=== PATIENT | female | born 1955 | race Caucasian/White ===

== ENCOUNTER → 2017-11-18 | Outpatient (CLI) | payer OTHER | END | disposition home or self-care (01) | LOC: HKI 14:35 | DX: M16.12 Unilateral primary osteoarthritis, left hip (principal); I10 Essential (primary) hypertension | CPT/HCPCS: 73502 ==

== ENCOUNTER → 2017-12-09 | Outpatient (CLI) | payer OTHER | END | disposition home or self-care (01) | LOC: HKI 13:44 | DX: M25.461 Effusion, right knee (principal) | CPT/HCPCS: G0463 ==

== ENCOUNTER → 2017-12-14 | Outpatient (CLI) | payer OTHER | END | disposition home or self-care (01) | LOC: HKI 13:48 | DX: T84.030A Mechanical loosening of internal right hip prosthetic joint, initial encounter (principal); Z96.641 Presence of right artificial hip joint | CPT/HCPCS: 73502 ==

== ENCOUNTER 2017-12-28 06:18 | Inpatient (IN) | payer OTHER ==
[2017-12-28] MEDS ORDERED: TRANEXAMIC ACID IRR (07:00)
[2017-12-28] MEDS ORDERED: SOD CHLORIDE 0.9% IRR (07:00)
[2017-12-28] MEDS ORDERED: LIDOCAINE 2% (SDV) 5 ML INJ (07:00)
[2017-12-28] MEDS ORDERED: PROPOFOL 200 MG INJ (07:00)
[2017-12-28] MEDS ORDERED: DEXAMETHASONE 4 MG/ML 1 ML INJ ×2 (07:00→10:13)
[2017-12-28] MEDS ORDERED: TRANEXAMIC ACID IVPB (07:00)
[2017-12-28] MEDS ORDERED: SOD CHLORIDE 0.9% IVPB (07:00)
[2017-12-28] MEDS ORDERED: EPHEDrine SULFATE 50 MG/5 ML SYG (07:00)
[2017-12-28] MEDS: ACETAMINOPHEN 1000MG/100ML IV 100 ML IVPB ×2 (07:52→18:24)
[2017-12-28] MEDS: LACTATED RINGER'S 1,000 ML IV* (07:52)
[2017-12-28] MEDS: ONDANSETRON 4 MG INJ IV (07:52)
[2017-12-28] MEDS: GABAPENTIN 300 MG CAP PO ×2 (07:56→21:02)
[2017-12-28] MEDS: CELECOXIB 200 MG CAP PO (07:56)
[2017-12-28] MEDS: LANSOPRAZOLE 30 MG CAP PO (07:57)
[2017-12-28] MEDS: VANCOMYCIN 1 GM (PMX) 250 ML IVPB ×2 (07:58→20:56)
[2017-12-28] MEDS ORDERED: BUPIVACAINE 0.75%/DEXT (SPINAL) 2 ML INJ (09:09)
[2017-12-28] MEDS ORDERED: FENTAnyl 50 MCG/ML VIAL (09:09)
[2017-12-28] MEDS ORDERED: MIDAZOLAM 1 MG/ML 2 ML INJ (09:46)
[2017-12-28 11:46] LABS: SYN FLD MN % 67.3 &; SYN FLD PMN % 32.7 % (0.0-25.0); SYN FLD WBC 1728 /cmm (0-150)
[2017-12-28] MEDS: ROPIVACAINE 0.2% 60 ML, CLONIDINE 100 MCG, EPINEPHrine 0.3 MG, KETOROLAC 30 MG, SOD CHL... INJ (12:12)
[2017-12-28 12:26] LABS: SYN FLD CLARITY CLOUDY; SYN FLD CRYSTALS NO CRYSTALS SEEN (None seen)
[2017-12-28 12:26] LABS: SYN FLD SOURCE HIP FLUID
[2017-12-28 12:35] LABS: SYN FLD COLOR ORANGE
[2017-12-28] MEDS ORDERED: ROCURONIUM 50 MG INJ (13:40)
[2017-12-28] MEDS ORDERED: HYDROmorphONE 2 MG/ML SYG (13:41)
[2017-12-28] MEDS ORDERED: PHENYLephrine (100 MCG/ML) 5ML SYG (13:53)
[2017-12-28] MEDS ORDERED: CEFAZOLIN 1 GM INJ ×3 (14:53)
[2017-12-28] MEDS ORDERED: SUGAMMADEX SODIUM 200 MG/2 ML VIAL IV (14:56)
[2017-12-28] MEDS ORDERED: ONDANSETRON 4 MG INJ (14:56)
[2017-12-28] MEDS: TOBRAMYCIN 1.2 GM POWDER (14:58)
[2017-12-28] MEDS: VANCOMYCIN 1 GM INJ (14:59)
[2017-12-28] MEDS ORDERED: HYDROmorphONE (0.2 MG/ML) 10ML SYG IV ×3 (15:00)
[2017-12-28] MEDS ORDERED: ONDANSETRON 4 MG INJ IV (15:00)
[2017-12-28] MEDS ORDERED: hydrALAzine 20 MG INJ IV (15:00)
[2017-12-28] MEDS ORDERED: FENTAnyl 50 MCG/ML VIAL IV ×3 (15:00)
[2017-12-28] MEDS ORDERED: LABETALOL HCL 20MG INJ IV (15:00)
[2017-12-28] MEDS ORDERED: DIPHENHYDRAMINE 50 MG INJ IV (15:00)
[2017-12-28] MEDS ORDERED: PROCHLORPERAZINE 10 MG INJ IV (15:00)
[2017-12-28] MEDS ORDERED: EPHEDrine SULFATE 50 MG/5 ML SYG IV (15:00)
[2017-12-28] MEDS ORDERED: MEPERIDINE 25 MG INJ IV (15:00)
[2017-12-28] MEDS ORDERED: NALOXONE (0.4 MG/ML) INJ IV (16:00)
[2017-12-28] MEDS ORDERED: NACL 0.9% 3 ML SYG IV (16:00)
[2017-12-28] MEDS ORDERED: HYDROmorphONE 0.5 MG/0.5 ML SYG IV (16:00)
[2017-12-28] MEDS ORDERED: oxyCODONE 5 MG TAB PO ×2 (16:00→16:37)
[2017-12-28] MEDS ORDERED: SENNA/DOCUSATE NA (8.6MG/50MG) TAB PO (16:00)
[2017-12-28] MEDS ORDERED: DIPHENHYDRAMINE 50 MG INJ IM (16:00)
[2017-12-28] MEDS: LACTATED RINGER'S 500 ML IV (17:44)
[2017-12-28] MEDS: SOD CHLORIDE 0.9% 1,000 ML IV (18:24)
[2017-12-29] MEDS: ACETAMINOPHEN 1000MG/100ML IV 100 ML IVPB ×3 (00:02→17:08)
[2017-12-29] MEDS: CEFAZOLIN 2 GM/50 ML (PMX) 100 ML IVPB ×3 (00:02→17:08)
[2017-12-29] MEDS: SOD CHLORIDE 0.9% 1,000 ML IV ×2 (04:28→16:58)
[2017-12-29 05:07] LABS: ADD MAN DIFF? NO
[2017-12-29 05:11] LABS: WHITE BLOOD COUNT 11.7 10^3/ul (4.8-10.8)
[2017-12-29 05:11] LABS: BASOPHILS % 0.1 % (0.0-2.0); HEMATOCRIT 25.2 % (37.0-47.0); HEMOGLOBIN 8.2 g/dl (12.0-16.0); LYMPHOCYTES # 0.9 10^3/ul (0.8-2.9); LYMPHOCYTES % 7.7 % (15.0-51.0); MEAN CORPUSCULAR HEMOGLOBIN 28.1 pg (29.0-33.0); MEAN CORPUSCULAR HGB CONC 32.5 g/dl (32.0-37.0); MEAN CORPUSCULAR VOLUME 86.3 fl (82.0-101.0); MEAN PLATELET VOLUME 10.7 fl (7.4-10.4); MONOCYTE # 0.7 10^3/ul (0.3-0.9); MONOCYTES % 6.3 % (0.0-11.0); NEUTROPHIL # 9.9 10^3/ul (1.6-7.5); NEUTROPHILS % 85.2 % (39.0-77.0); PLATELET COUNT 179 10^3/UL (140-415); RED BLOOD COUNT 2.92 10^6/ul (4.20-5.40); RED CELL DISTRIBUTION WIDTH 12.6 % (11.5-14.5)
[2017-12-29 05:36] LABS: ANION GAP 13 (8-16); BLOOD UREA NITROGEN 14 mg/dl (7-20); CALCIUM 8.5 mg/dl (8.4-10.2); CARBON DIOXIDE 25 mmol/L (21-31); CHLORIDE 109 mmol/L (97-110); CREATININE 0.68 mg/dl (0.44-1.00); GLUCOSE 108 mg/dl (70-220); POTASSIUM 5.2 mmol/L (3.5-5.1); SODIUM 142 mmol/L (135-144)
[2017-12-29] MEDS: LISINOPRIL 5 MG TAB PO ×2 (08:00→20:09)
[2017-12-29] MEDS: VANCOMYCIN 1 GM (PMX) 250 ML IVPB (08:49)
[2017-12-29] MEDS: ASPIRIN (EC) 325 MG TAB PO (08:50)
[2017-12-29] MEDS: DOCUSATE SODIUM 100 MG CAP PO ×2 (08:50→20:09)
[2017-12-29] MEDS: oxyCODONE 5 MG TAB PO ×2 (15:22→20:08)
[2017-12-29] MEDS ORDERED: ONDANSETRON 4 MG INJ IV (16:00)
[2017-12-29] MEDS: GABAPENTIN 300 MG CAP PO (20:08)
[2017-12-30 05:20] LABS: ADD MAN DIFF? NO
[2017-12-30 05:28] LABS: BASOPHILS % 0.2 % (0.0-2.0); EOSINOPHILS # 0.1 10^3/ul (0.0-0.5); EOSINOPHILS % 0.7 % (0.0-7.0); HEMATOCRIT 22.4 % (37.0-47.0); HEMOGLOBIN 7.3 g/dl (12.0-16.0); LYMPHOCYTES # 1.9 10^3/ul (0.8-2.9); LYMPHOCYTES % 19.8 % (15.0-51.0); MEAN CORPUSCULAR HEMOGLOBIN 27.9 pg (29.0-33.0); MEAN CORPUSCULAR HGB CONC 32.6 g/dl (32.0-37.0); MEAN CORPUSCULAR VOLUME 85.5 fl (82.0-101.0); MEAN PLATELET VOLUME 11.2 fl (7.4-10.4); MONOCYTE # 0.8 10^3/ul (0.3-0.9); MONOCYTES % 7.7 % (0.0-11.0); NEUTROPHIL # 6.9 10^3/ul (1.6-7.5); NEUTROPHILS % 71.1 % (39.0-77.0); PLATELET COUNT 150 10^3/UL (140-415); RED BLOOD COUNT 2.62 10^6/ul (4.20-5.40); RED CELL DISTRIBUTION WIDTH 13.2 % (11.5-14.5)
[2017-12-30 05:28] LABS: WHITE BLOOD COUNT 9.8 10^3/ul (4.8-10.8)
[2017-12-30] MEDS: SOD CHLORIDE 0.9% 1,000 ML IV (05:28)
[2017-12-30 05:51] LABS: ANION GAP 12 (8-16); BLOOD UREA NITROGEN 12 mg/dl (7-20); CALCIUM 8.6 mg/dl (8.4-10.2); CARBON DIOXIDE 27 mmol/L (21-31); CHLORIDE 107 mmol/L (97-110); CREATININE 0.81 mg/dl (0.44-1.00); GLUCOSE 98 mg/dl (70-220); SODIUM 142 mmol/L (135-144)
[2017-12-30] MEDS: ACETAMINOPHEN 1000MG/100ML IV 100 ML IVPB ×2 (08:00)
[2017-12-30] MEDS: oxyCODONE 5 MG TAB PO ×2 (09:23→14:09)
[2017-12-30] MEDS: ASPIRIN (EC) 325 MG TAB PO (09:23)
[2017-12-30] MEDS: DOCUSATE SODIUM 100 MG CAP PO (09:23)
== END 2017-12-30 16:45 | disposition home health service (06) | DRG 467 ==
LOC: REC 06:18 → MS1 18:00
PROVIDERS: Orthopaedic Surgery Adult Reconstructive Orthopaedic Surgery
PROC: 0SR904Z Replacement of Right Hip Joint with Ceramic on Polyethylene Synthetic Substitute, Open Approach (ICD-10-PCS; principal; 2017-12-28 09:30)
PROC: 0SP90JZ Removal of Synthetic Substitute from Right Hip Joint, Open Approach (ICD-10-PCS; 2017-12-28 09:30)
DX: T84.030A Mechanical loosening of internal right hip prosthetic joint, initial encounter (principal); D62 Acute posthemorrhagic anemia; I10 Essential (primary) hypertension; I34.0 Nonrheumatic mitral (valve) insufficiency; E78.2 Mixed hyperlipidemia; Y83.8 Other surgical procedures as the cause of abnormal reaction of the patient, or of later complication, without mention of misadventure at the time of the procedure; Y92.019 Unspecified place in single-family (private) house as the place of occurrence of the external cause
CPT/HCPCS: 72170; 73500; 80048; 85025; 86850; 86900; 86901; 86920; 87070; 87075; 87102; 87116; 89060; 97116; 97161; 97165; 97530; 97535

== ENCOUNTER → 2018-01-12 | Outpatient (CLI) | payer OTHER | END | disposition home or self-care (01) | LOC: HKI 09:58 | DX: Z09 Encounter for follow-up examination after completed treatment for conditions other than malignant neoplasm (principal); Z96.641 Presence of right artificial hip joint; H54.7 Unspecified visual loss | CPT/HCPCS: 73502 ==

== ENCOUNTER → 2018-02-23 | Outpatient (CLI) | payer OTHER | END | disposition home or self-care (01) | LOC: HKI 10:42 | DX: Z09 Encounter for follow-up examination after completed treatment for conditions other than malignant neoplasm (principal); M17.12 Unilateral primary osteoarthritis, left knee | CPT/HCPCS: 73502 ==